=== PATIENT | female | born 1945 | race Caucasian/White ===

== ENCOUNTER 2018-06-11 10:19 | Outpatient (RCR) | payer MEDICARE, OTHER ==
[2018-06-11 10:43] VITALS: BP 124/80
[2018-06-11] MEDS ORDERED: ACETAMINOPHEN 325 MG TAB PO PRN (10:45)
[2018-06-11] MEDS ORDERED: METH2.5T43 PO (10:56)
[2018-06-11] MEDS ORDERED: ALEN70TA2 PO (10:56)
[2018-06-11] MEDS ORDERED: OMEG-23 PO (10:56)
[2018-06-11] MEDS ORDERED: FLUO60TA PO (10:56)
[2018-06-11] MEDS ORDERED: DOXY-181 PO (10:56)
[2018-06-11] MEDS ORDERED: INF100I IV ×2 (10:56→11:24)
[2018-06-11] MEDS ORDERED: LEVO137T23 PO (10:56)
[2018-06-11] MEDS ORDERED: PRAM0.7519 (10:56)
[2018-06-11] MEDS ORDERED: CHOL100052 PO (11:24)
[2018-06-11] MEDS ORDERED: FISH1CAP15 PO (11:24)
[2018-06-11] MEDS ORDERED: ALEN10TA PO (11:24)
[2018-06-11] MEDS ORDERED: FOLI-68 PO (11:24)
[2018-06-11] MEDS ORDERED: inFLIXimab 100 MG VIAL 300 MG in NS(*) 0.9% 250 ML BAG 250 ML IVPB ONE (11:30)
[2018-06-11] MEDS ORDERED: NS(*) 0.9% 100 ML BAG 100 ML IVPB PRN (12:10)
[2018-06-11] MEDS ORDERED: DEXTROSE 5%(*) 100 ML BAG 100 ML IVPB PRN (12:10)
[2018-06-11] MEDS ORDERED: LIDOCAINE/SOD BICARB 8.4% SYR ID PRN (12:10)
== END 2018-08-05 09:10 | disposition home or self-care (01) ==
LOC: SPU 10:19
PROVIDERS: ATTEND Internal Medicine Rheumatology
DX: M06.9 Rheumatoid arthritis, unspecified (principal)
CPT/HCPCS: 96413; 96415; A9270; J1745; J7050